=== PATIENT | female | born 1985 | race Caucasian/White ===

== ENCOUNTER 2020-12-21 06:15 | Inpatient (IN) | payer OTHER ==
[2020-12-21 07:58] VITALS: BMI 28.1
[2020-12-21 08:09] LABS: BASO % 0.4 % (0-2.0); EOS % 1.3 % (0-4.5); HEMATOCRIT 39.5 % (32.4-45.2); HEMOGLOBIN 13.5 GM/dL (10.7-15.3); LYMPH % 22.6 % (8-40); MCH 31.9 pg (25.7-33.7); MCHC 34.3 g/dl (32.0-36.0); MEAN CELL VOLUME 93.1 fl (80-96); MEAN PLT VOLUME 7.4 fl (7.5-11.1); MONO % 7.5 % (3.8-10.2); NEUT % 68.2 % (42.8-82.8); PLATELET COUNT 245 10^3/uL (134-434); RBC 4.25 M/mm3 (3.60-5.2); RDW 12.6 % (11.6-15.6); WHITE BLOOD COUNT 8.2 K/mm3 (4.0-10.0)
[2020-12-21 08:11] LABS: INR 0.9 (0.83-1.09); PROTHROMBIN TIME (PATIENT) 11.1 SEC (9.7-13.0)
[2020-12-21 08:14] LABS: ACTIVATED PTT 28.3 SECONDS (25.2-36.5)
[2020-12-21 08:19] LABS: CALCIUM 8.3 mg/dL (8.5-10.1)
[2020-12-21 08:20] LABS: BLOOD UREA NITROGEN 5.4 mg/dL (7-18)
[2020-12-21 08:23] LABS: CREATININE 0.6 mg/dL (0.55-1.3)
[2020-12-21] MEDS ORDERED: BUTORPHANOL TARTRATE 1 MG/ML VIAL IVPB ONE (08:29)
[2020-12-21] MEDS ORDERED: PROMETHAZINE HCL 25 MG/1 ML VIAL IVPUSH ONE (08:29)
[2020-12-21 09:03] LABS: SYPHILIS W/ RPR CONF NON-REACTIVE (NONREACTIVE)
[2020-12-21] MEDS: ELECTROLYTE-148 SOLN 1,000 ML IV SCH (09:05)
[2020-12-21] MEDS ORDERED: OXYTOCIN 30 UNITS in 0.9% NS 30 UNIT/500 ML INFUS.BAG IVPB ONE ×2 (09:21→22:58)
[2020-12-21] MEDS: OXYTOCIN 30 UNITS in 0.9% NS 30 UNIT/500 ML INFUS.BAG IVPB SCH (09:25)
[2020-12-21 09:34] LABS: HIV INTERPRETATION NEGATIVE (NEGATIVE)
[2020-12-21] MEDS ORDERED: NALOXONE HCL 0.4 MG/ML VIAL IVPUSH PRN (14:49)
[2020-12-21] MEDS ORDERED: BUPIVACAINE HCL/PF 0.25% (2.5MG/ML) 10 ML VIAL ONE (14:52)
[2020-12-21] MEDS: FENTANYL/BUPIVACAINE/NS/PF - PCEA - 50 ML DISP.SYRIN EP SCH (15:10)
[2020-12-21] MEDS ORDERED: FENTANYL/BUPIVACAINE/NS/PF - PCEA - 50 ML DISP.SYRIN EP ONE ×3 (15:27→23:53)
[2020-12-21] MEDS ORDERED: PCA PUMP NR ONE (20:22)
[2020-12-22] MEDS ORDERED: FENTANYL/BUPIVACAINE/NS/PF - PCEA - 50 ML DISP.SYRIN EP ONE ×3 (03:26→09:58)
[2020-12-22] MEDS ORDERED: BUPIVACAINE HCL/PF 0.25% (2.5MG/ML) 10 ML VIAL ONE ×2 (07:20→11:12)
[2020-12-22] MEDS ORDERED: LIDOCAINE HCL 1% PRESERVATIVE FREE - 30ML VIAL ONE (07:25)
[2020-12-22] MEDS ORDERED: OXYTOCIN 20 UNITS in 0.9% NS 20 UNIT/1,000 ML INFUS.BAG IV ONE (07:26)
[2020-12-22] MEDS ORDERED: PCA PUMP NR ONE ×2 (10:16→15:38)
[2020-12-22] MEDS ORDERED: ONDANSETRON 4 MG/2 ML VIAL ONE (11:17)
[2020-12-22] MEDS: OXYTOCIN 20 UNITS in 0.9% NS 20 UNIT/1,000 ML INFUS.BAG IV SCH ×2 (12:45→21:00)
[2020-12-22] MEDS ORDERED: METHYLERGONOVINE MALEATE 0.2 MG/1 ML AMP IM PRN (13:13)
[2020-12-22] MEDS ORDERED: WITCH HAZEL 50% (TUCKS) 40 PAD/JAR PAD TP PRN (13:13)
[2020-12-22] MEDS ORDERED: BISACODYL 10 MG SUPP.RECT RC PRN (13:13)
[2020-12-22] MEDS ORDERED: oxyCODONE HCL 5 MG TABLET PO PRN (13:13)
[2020-12-22] MEDS ORDERED: BENZOCAINE 28 GM HEMORRHOIDAL OINTMENT TP PRN (13:13)
[2020-12-22] MEDS ORDERED: BENZOCAINE 20% 57 GM BOTTLE TP PRN (13:13)
[2020-12-22] MEDS: FENTANYL/BUPIVACAINE/NS/PF - PCEA - 50 ML DISP.SYRIN EP SCH (19:41)
[2020-12-22] MEDS: ELECTROLYTE-148 SOLN 1,000 ML IV SCH (19:41)
[2020-12-22] MEDS: OXYTOCIN 30 UNITS in 0.9% NS 30 UNIT/500 ML INFUS.BAG IVPB SCH (19:42)
[2020-12-22] MEDS ORDERED: DEXAMETHASONE SOD PHOSPHATE 4 MG/1 ML VIAL ONE (19:48)
[2020-12-22] MEDS: METHYLERGONOVINE MALEATE 0.2 MG TABLET (FP) PO PRN (19:52)
[2020-12-22] MEDS: IBUPROFEN 600 MG TABLET (FP) PO PRN (19:52)
[2020-12-22] MEDS: ACETAMINOPHEN 325 MG TABLET (FP) PO PRN (19:54)
[2020-12-23] MEDS: METHYLERGONOVINE MALEATE 0.2 MG TABLET (FP) PO PRN (02:11)
[2020-12-23] MEDS: ACETAMINOPHEN 325 MG TABLET (FP) PO PRN ×3 (02:11→22:15)
[2020-12-23] MEDS: IBUPROFEN 600 MG TABLET (FP) PO PRN ×3 (02:11→22:14)
[2020-12-23] MEDS: OXYTOCIN 20 UNITS in 0.9% NS 20 UNIT/1,000 ML INFUS.BAG IV SCH (04:58)
[2020-12-23 08:46] LABS: BASO % 0.1 % (0-2.0); EOS % 0.1 % (0-4.5); HEMATOCRIT 40.2 % (32.4-45.2); HEMOGLOBIN 13.2 GM/dL (10.7-15.3); LYMPH % 9.3 % (8-40); MCH 31.1 pg (25.7-33.7); MCHC 32.8 g/dl (32.0-36.0); MEAN CELL VOLUME 94.8 fl (80-96); MEAN PLT VOLUME 7.8 fl (7.5-11.1); MONO % 2.8 % (3.8-10.2); NEUT % 87.7 % (42.8-82.8); PLATELET COUNT 234 10^3/uL (134-434); RBC 4.24 M/mm3 (3.60-5.2); RDW 13.1 % (11.6-15.6); WHITE BLOOD COUNT 19.8 K/mm3 (4.0-10.0)
[2020-12-23] MEDS: PRENATAL VITAMINS W/ FOLIC ACID TABLET (FP) PO SCH (09:27)
[2020-12-23] MEDS ORDERED: SENNOSIDES/DOCUSATE COMBO (SENNA PLUS) TABLET (UD) PO PRN (22:00)
[2020-12-24] MEDS: PRENATAL VITAMINS W/ FOLIC ACID TABLET (FP) PO SCH (09:42)
[2020-12-24] MEDS: IBUPROFEN 600 MG TABLET (FP) PO PRN (09:45)
[2020-12-24] MEDS: ACETAMINOPHEN 325 MG TABLET (FP) PO PRN (09:45)
[2020-12-24 10:30] VITALS: BP 91/67; PULSE 90; TEMP 98.8
== END 2020-12-24 12:00 | disposition home or self-care (01) | DRG 807 ==
LOC: JLDR 06:15 → J3W 12-22 15:14
PROVIDERS: ADMIT Obstetrics & Gynecology; ATTEND Obstetrics & Gynecology
PROC: 3E033VJ Introduction of Other Hormone into Peripheral Vein, Percutaneous Approach (ICD-10-PCS; 2020-12-21)
PROC: 10E0XZZ Delivery of Products of Conception, External Approach (ICD-10-PCS; principal; 2020-12-22)
DX: O70.0 First degree perineal laceration during delivery (principal); Z37.0 Single live birth; O90.89 Other complications of the puerperium, not elsewhere classified; G57.82 Other specified mononeuropathies of left lower limb; Z3A.39 39 weeks gestation of pregnancy
CPT/HCPCS: 36415; 59409; 80048; 85025; 85610; 85730; 86780; 86850; 86900; 86901; 87389; 97116-GP; 97161-GP; C9803; U0003; U0005

== ENCOUNTER 2021-07-16 14:58 | Emergency (ER) | payer OTHER ==
[2021-07-16 15:16] VITALS: TEMP 97.7; BMI 24.0
[2021-07-16] MEDS ORDERED: KETOROLAC TROMETHAMINE 30 MG/1 ML VIAL IVPUSH ONE (16:25)
[2021-07-16] MEDS ORDERED: SODIUM CHLORIDE 0.9% 500 ML INFUS.BAG IV ONE ×2 (16:25→17:56)
[2021-07-16] MEDS ORDERED: FAMOTIDINE 20 MG/50 ML IVPB 20 MG/50 ML MG IVPB ONE ×2 (16:25→16:33)
[2021-07-16] MEDS ORDERED: ONDANSETRON 4 MG/2 ML VIAL IVPUSH ONE (16:25)
[2021-07-16] MEDS ORDERED: ONDANSETRON 4 MG/2 ML VIAL ONE (16:33)
[2021-07-16] MEDS ORDERED: KETOROLAC TROMETHAMINE 30 MG/1 ML VIAL ONE (17:09)
[2021-07-16 18:07] LABS: HEMOGLOBIN 14.5 GM/dL (10.7-15.3); MCH 30.2 pg (25.7-33.7); MEAN CELL VOLUME 91.6 fl (80-96); MEAN PLT VOLUME 6.7 fl (7.5-11.1); PLATELET COUNT 331 10^3/uL (134-434); RDW 13.2 % (11.6-15.6); WHITE BLOOD COUNT 9.6 K/mm3 (4.0-10.0)
[2021-07-16 18:12] LABS: EPI CELLS >36 /uL (0-25.1); HYALINE CASTS 1 /uL (0-3.1); URINE APPEARANCE CLEAR; URINE BACTERIA 173 /uL (0-1359); URINE BILIRUBIN NEGATIVE (NEGATIVE); URINE COLOR YELLOW; URINE GLUCOSE (UA) NEGATIVE (NEGATIVE); URINE KETONE 2+ (NEGATIVE); URINE LEUK ESTERASE TRACE (NEGATIVE); URINE NITRITE NEGATIVE (NEGATIVE); URINE PROTEIN NEGATIVE (NEGATIVE); URINE RBC 6 /uL (0-23.9); URINE UROBILINOGEN 0.2 mg/dL (0.2-1.0); URINE WBC 21 /uL (0-25.8)
[2021-07-16 18:36] LABS: CALCIUM 9.1 mg/dL (8.5-10.1)
[2021-07-16 18:37] LABS: ALBUMIN 4.3 g/dl (3.4-5.0); BLOOD UREA NITROGEN 18.6 mg/dL (7-18)
[2021-07-16 18:40] LABS: CREATININE 0.8 mg/dL (0.55-1.3)
[2021-07-16 18:42] LABS: BILIRUBIN,TOTAL 0.6 mg/dL (0.2-1)
[2021-07-16 20:29] LABS: ANISOCYTOSIS 0; MACROCYTOSIS 0
[2021-07-16 23:03] VITALS: BP 121/76; PULSE 92
== END 2021-07-16 23:04 | disposition home or self-care (01) ==
LOC: JER 14:58
PROC: 3E033NZ Introduction of Analgesics, Hypnotics, Sedatives into Peripheral Vein, Percutaneous Approach (ICD-10-PCS; principal; 2021-07-16)
PROC: 3E0333Z Introduction of Anti-inflammatory into Peripheral Vein, Percutaneous Approach (ICD-10-PCS; 2021-07-16)
PROC: 3E033GC Introduction of Other Therapeutic Substance into Peripheral Vein, Percutaneous Approach (ICD-10-PCS; 2021-07-16)
DX: K52.9 Noninfective gastroenteritis and colitis, unspecified (principal)
CPT/HCPCS: 36415; 74177-TC; 80053; 81003; 83690; 84703; 85025; 99285-25; Q9967

== ENCOUNTER 2024-10-24 07:00 | Inpatient (IN) | payer OTHER ==
[2024-10-24 19:41] VITALS: RESP 18; BMI 29.2
[2024-10-24 20:27] LABS: ABSOLUTE IMMATURE GRANULOCYTES 0.13 x10^3/uL (0.0-0.031); BASOPHILS # 0.04 x10^3/uL (0.01-0.08); EOSINOPHIL % 1.5 % (0.7-5.8); EOSINOPHILS # 0.13 x10^3/uL (0.04-0.36); HEMATOCRIT 33.4 % (34.1-44.9); HEMOGLOBIN 11.2 g/dL (11.2-15.7); MCHC 33.5 g/dl (32.2-35.5); MEAN CELL VOLUME 89.5 fl (79.4-94.8); MEAN PLT VOLUME 9.8 fl (9.4-12.3); MONOCYTE # 0.66 x10^3/uL (0.24-0.86); MONOCYTE % 7.9 % (4.7-12.5); PLATELET COUNT 229 x10^3/uL (182-369); RDW 17.4 % (12.1-16.8)
[2024-10-24 20:32] LABS: INR 0.92 (0.83-1.09)
[2024-10-24 20:34] LABS: ACTIVATED PTT 28.9 SECONDS (25.2-36.5)
[2024-10-24 20:56] LABS: POTASSIUM 3.7 mmol/L (3.5-5.1)
[2024-10-24 20:57] LABS: BLOOD UREA NITROGEN 7.4 mg/dL (7-18); CALCIUM 8.8 mg/dL (8.5-10.1)
[2024-10-24 21:01] LABS: CREATININE 0.5 mg/dL (0.55-1.3)
[2024-10-24 21:37] LABS: HIV INTERPRETATION NEGATIVE (NEGATIVE)
[2024-10-24] MEDS: DINOPROSTONE 10 MG VAGINAL SUPPOSITORY VG ONE (21:45)
[2024-10-24] MEDS: DEXTROSE 5%-LACTATED RINGERS 1,000 ML IV SCH (22:05)
[2024-10-24] MEDS ORDERED: ZOLPIDEM TARTRATE 5 MG TABLET ONE (22:59)
[2024-10-24] MEDS: ZOLPIDEM TARTRATE 5 MG TABLET PO PRN (23:05)
[2024-10-25] MEDS ORDERED: NALOXONE HCL 0.4 MG/ML VIAL IVPUSH PRN (00:11)
[2024-10-25] MEDS ORDERED: FENTANYL/BUPIVACAINE/NS/PF - PCEA - 50 ML DISP.SYRIN EP ONE ×2 (00:11→05:11)
[2024-10-25] MEDS ORDERED: FENTANYL/BUPIVACAINE/NS/PF - PCEA - 50 ML DISP.SYRIN EP SCH (00:15)
[2024-10-25] MEDS: FENTANYL/BUPIVACAINE/NS/PF - PCEA - 50 ML DISP.SYRIN EP SCH (00:30)
[2024-10-25] MEDS ORDERED: OXYTOCIN 20 UNITS in 0.9% NS 20 UNIT/1,000 ML INFUS.BAG IV ONE ×2 (07:37→09:39)
[2024-10-25] MEDS: OXYTOCIN 20 UNITS in 0.9% NS 20 UNIT/1,000 ML INFUS.BAG IV SCH (08:00)
[2024-10-25] MEDS ORDERED: BENZOCAINE 28 GM HEMORRHOIDAL OINTMENT TP PRN (08:12)
[2024-10-25] MEDS ORDERED: oxyCODONE HCL 5 MG TABLET PO PRN (08:12)
[2024-10-25] MEDS ORDERED: BISACODYL 10 MG SUPP.RECT RC PRN (08:12)
[2024-10-25] MEDS ORDERED: WITCH HAZEL 50% (TUCKS) 40 PAD/JAR PAD TP PRN (08:12)
[2024-10-25] MEDS ORDERED: ACETAMINOPHEN 325 MG TABLET (FP) PO PRN (08:12)
[2024-10-25] MEDS ORDERED: METHYLERGONOVINE MALEATE 0.2 MG/1 ML AMP IM PRN (08:12)
[2024-10-25] MEDS ORDERED: ONDANSETRON 4 MG/2 ML VIAL ONE (10:54)
[2024-10-25] MEDS: OXYTOCIN 30 UNITS in 0.9% NS 30 UNIT/500 ML INFUS.BAG IVPB SCH (11:10)
[2024-10-25] MEDS: PROMETHAZINE HCL 25 MG/1 ML VIAL IVPB ONE (11:46)
[2024-10-25] MEDS: BUTORPHANOL TARTRATE 2 MG/ML VIAL IVPB ONE (11:46)
[2024-10-25] MEDS: PRENATAL VITAMINS W/ FOLIC ACID TABLET (FP) PO SCH (11:49)
[2024-10-25] MEDS: ONDANSETRON 4 MG/2 ML VIAL IVPUSH PRN (11:50)
[2024-10-25] MEDS: IBUPROFEN 600 MG TABLET (FP) PO PRN (14:48)
[2024-10-26] MEDS: BENZOCAINE 20% 57 GM BOTTLE TP PRN (05:54)
[2024-10-26 08:05] LABS: ABSOLUTE IMMATURE GRANULOCYTES 0.11 x10^3/uL (0.0-0.031); BASOPHILS # 0.06 x10^3/uL (0.01-0.08); EOSINOPHIL % 1.5 % (0.7-5.8); EOSINOPHILS # 0.18 x10^3/uL (0.04-0.36); HEMATOCRIT 34.5 % (34.1-44.9); HEMOGLOBIN 11.2 g/dL (11.2-15.7); MCHC 32.5 g/dl (32.2-35.5); MEAN CELL VOLUME 90.6 fl (79.4-94.8); MEAN PLT VOLUME 9.7 fl (9.4-12.3); MONOCYTE # 0.73 x10^3/uL (0.24-0.86); MONOCYTE % 6.2 % (4.7-12.5); PLATELET COUNT 210 x10^3/uL (182-369)
[2024-10-26] MEDS: FERROUS SO4 325 MG TABLET (FP) PO SCH (09:35)
[2024-10-26] MEDS ORDERED: SENNOSIDES/DOCUSATE COMBO (SENNA PLUS) TABLET (UD) PO PRN (22:00)
[2024-10-27 09:47] VITALS: BP 117/64; PULSE 83; TEMP 98.1
== END 2024-10-27 12:15 | disposition home or self-care (01) | DRG 807 ==
LOC: UNDOADMIN 07:00 → JLDR 07:00 → J3W 10-25 10:45
PROVIDERS: ADMIT Obstetrics & Gynecology; ATTEND Obstetrics & Gynecology
PROC: 3E0P7VZ Introduction of Hormone into Female Reproductive, Via Natural or Artificial Opening (ICD-10-PCS; 2024-10-24)
PROC: 10E0XZZ Delivery of Products of Conception, External Approach (ICD-10-PCS; principal; 2024-10-25)
PROC: 0HQ9XZZ Repair Perineum Skin, External Approach (ICD-10-PCS; 2024-10-25)
DX: O48.0 Post-term pregnancy (principal); Z37.0 Single live birth; Z3A.41 41 weeks gestation of pregnancy; O70.0 First degree perineal laceration during delivery
CPT/HCPCS: 36415; 59409; 80048; 85025; 85610; 85730; 86780; 86850; 86900; 86901; 87389